=== PATIENT | female | born 1950 | race Caucasian/White ===

== ENCOUNTER → 2017-07-19 | Outpatient (CLI) | payer OTHER, MEDICARE ==
[~2017-07-19] VITALS: Ht 163.8 cm; Wt 102.3 kg
[~2017-07-19] MED LIST: ALEN70TA47 PO; ALPR0.5T8 PO; CALC-1106 PO; CLINDAMYCIN 900 MG/D5% WATER 50 ML IV SCH; IBUP-2353 PO; LORA10TA7 PO; METO-408 PO; PANT40TA25 PO; PHEN-615 PO; PRAV40TA3 PO; SERT100T12 PO; SUMA25TA9 PO; TRAM50TA4 PO; VARE0.5T PO; VITA1CAP50 PO
[2017-07-19 12:22] VITALS: BP 159/71
[2017-07-19 12:23] LABS: HEMATOCRIT 39.7 % (36-48); LYMPHOCYTES % (AUTO) 30.8 % (21.0-51.0); MEAN CORPUSCULAR HGB CONC 32.8 g/dL (32.0-36.0); MEAN CORPUSCULAR VOLUME 79.2 fL (79-99); MONOCYTES % (AUTO) 7.8 % (3.0-13.0); NEUTROPHILS % (AUTO) 56.4 % (40.0-77.0); NUCLEATED RED BLOOD CELLS 0.1 % (0.0-0.19); PLATELET COUNT (AUTO) 275 K/uL (130-400); RED BLOOD CELL COUNT(AUTO) 5.02 MIL/uL (4.00-5.50); RED CELL DISTRIBUTION WIDTH 15.8 % (11.0-15.5)
[2017-07-19 12:44] LABS: INR 0.89 (0.85-1.15); PARTIAL THROMBOPLASTIN TIME 23.6 SEC (26.3-35.5); PROTHROMBIN TIME 9.4 SEC (9.6-11.6)
[2017-07-19 12:46] LABS: ALBUMIN 3.5 g/dL (3.5-5.0); BILIRUBIN,TOTAL 0.3 mg/dL (0.2-1.0); CREATININE 0.8 mg/dL (0.5-1.5); POTASSIUM 5.2 mmol/L (3.5-5.1); TOTAL PROTEIN, SERUM 7.7 g/dL (6.0-8.3)
== END | disposition home or self-care (01) ==
LOC: CANPREIN → DAH 10:00 → EDSTATUS 12:00
PROVIDERS: ATTEND Neuromusculoskeletal Medicine & OMM
DX: Z01.818 Encounter for other preprocedural examination (principal); M54.5 Low back pain; R79.1 Abnormal coagulation profile
CPT/HCPCS: 36415; 80053; 85025; 85610; 85730; 93005

== ENCOUNTER → 2019-01-22 | Outpatient (CLI) | payer OTHER ==
[~2019-01-22] MED LIST changes: +ALEN70TA10 PO; -ALEN70TA47 PO; -CLINDAMYCIN 900 MG/D5% WATER 50 ML IV SCH; -IBUP-2353 PO; +IBUP-2784 PO; -SUMA25TA9 PO; -TRAM50TA4 PO; -VARE0.5T PO
== END | disposition home or self-care (01) ==
LOC: OIH 13:44
PROVIDERS: ATTEND Internal Medicine Cardiovascular Disease
DX: Z13.6 Encounter for screening for cardiovascular disorders (principal); K44.9 Diaphragmatic hernia without obstruction or gangrene
CPT/HCPCS: 75571

== ENCOUNTER 2019-03-18 07:22 | Day surgery (SDC) | payer OTHER, MEDICARE ==
[2019-03-16 10:00] VITALS: BP 141/72
[2019-03-16 10:05] LABS: BASOPHILS % (AUTO) 0.8 % (0.0-5.0); EOSINOPHILS % (AUTO) 4.6 % (0.0-8.0); HEMATOCRIT 42.3 % (36-48); LYMPHOCYTES % (AUTO) 27.7 % (21.0-51.0); MEAN CORPUSCULAR HEMOGLOBIN 27.3 pg (27.0-33.0); MEAN CORPUSCULAR HGB CONC 30.7 g/dL (32.0-36.0); MEAN CORPUSCULAR VOLUME 88.9 fL (79-99); MONOCYTES % (AUTO) 9.3 % (3.0-13.0); NEUTROPHILS % (AUTO) 57.3 % (40.0-77.0); PLATELET COUNT (AUTO) 222 K/uL (130-400); RED BLOOD CELL COUNT(AUTO) 4.76 MIL/uL (4.00-5.50); RED CELL DISTRIBUTION WIDTH 13.9 % (11.0-15.5); WHITE BLOOD COUNT (AUTO) 5.9 K/uL (4.8-10.8)
[2019-03-16 10:14] LABS: APPEARANCE,URINE Clear (CLEAR); BILIRUBIN,URINE Negative (NEGATIVE); COLOR,URINE Yellow (YELLOW); CREATININE 0.8 mg/dL (0.5-1.5); GLUCOSE, URINE (UA) Negative (NEGATIVE); KETONES,URINE Negative (NEGATIVE); LEUKOCYTE ESTERASE ,URINE Small (NEGATIVE); NITRATE,URINE Negative (NEGATIVE); OCCULT BLOOD,URINE Negative (NEGATIVE); POTASSIUM 4.8 mmol/L (3.5-5.1); PROTEIN,URINE Negative (NEGATIVE)
[2019-03-16 10:22] LABS: INR 0.92 (0.85-1.15); PARTIAL THROMBOPLASTIN TIME 24.3 SEC (26.3-35.5); PROTHROMBIN TIME 9.7 SEC (9.6-11.6)
[2019-03-16 10:43] LABS: RBC,URINE 0-1 /HPF (0-1)
[2019-03-16 10:44] LABS: BACTERIA,URINE Rare /HPF (None Seen); SQUAMOUS EPITHELIAL CELL,UR Rare /HPF (0-2)
--- NOTE | 2019-03-17 12:30 | NUR ---
ABNORMAL LABS abnormal urine reported to Tarah BARAHONA by Juan Tovar RN no new orders given Addendum: 03/17/19 at 1342 by MALIA DEVINE RN RN Amended: Links added.
[2019-03-18] VITALS (10 sets, daily range): BP systolic 117–144; BP diastolic 55–74
[~2019-03-18] VITALS: Ht 163.8 cm; Wt 105.0 kg
[~2019-03-18 07:22] MED LIST changes: -ALEN70TA10 PO; +ASPI-1005 PO; +ASPI-988 PO; -CALC-1106 PO; +IBUP-2077 PO; -IBUP-2784 PO; -LORA10TA7 PO; -PHEN-615 PO; +SUMA50TA PO; +TRAM100T34 PO; -VITA1CAP50 PO
[2019-03-18] MEDS ORDERED: SODIUM CHLORIDE 0.9% 1000ML 1,000 ML IV SCH ×2 (08:00→10:46)
[2019-03-18] MEDS ORDERED: HEPARIN SODIUM 1000UNIT/ML 10ML VIAL ONE ×2 (09:26→09:29)
[2019-03-18] MEDS ORDERED: SODIUM BICARB 50MEQ 50ML VIAL ONE (09:26)
[2019-03-18] MEDS ORDERED: MEPERIDINE-PF 25 MG/ML SYG ONE ×3 (09:27→10:24)
[2019-03-18] MEDS ORDERED: IOHEXOL 350 MG/ML 100ML INFUS..BTL IV ONE (09:27)
[2019-03-18] MEDS ORDERED: NITROGLYCERIN 5 MG/ML 10 ML VIAL IV ONE (09:27)
[2019-03-18] MEDS ORDERED: MIDAZOLAM HCL 1 MG/ML 2ML VIAL ONE ×3 (09:28→10:24)
[2019-03-18] MEDS ORDERED: LIDOCAINE HCL 2% 20ML ONE (09:28)
[2019-03-18] MEDS ORDERED: IOHEXOL-350 50ML VIAL IV ONE (09:29)
[2019-03-18] MEDS ORDERED: NICARDIPINE HCL 25 MG/10 ML ML IV ONE (09:57)
--- NOTE | 2019-03-18 11:10 | NUR ---
POST RECEIVED PT BACK FROM OPERATIONS CHIEF. S/P LHC VIA RIGHT RADIAL APPROACH , TR BAND IN PLACE WITH 12 ML OF AIR, SEE POST CATH ASSESSMENT. PT AWAKE AND ALERT. VS STABLE ON ARRIVAL. PLAN OF CARE DISCUSS WITH PATIENT, SHE VERBALIZED UNDERSTANDING.
--- NOTE | 2019-03-18 15:14 | NUR ---
REMOVED TRBAND WITH A TOTAL OF 12CC, PT TOLERATED WELL NO DISTRESS NOTED. NO HEMATOMA TO SITE
== END 2019-03-18 15:19 | disposition home or self-care (01) ==
LOC: DAH 07:22
PROVIDERS: ATTEND Internal Medicine Cardiovascular Disease
DX: I25.118 Atherosclerotic heart disease of native coronary artery with other forms of angina pectoris (principal); F41.9 Anxiety disorder, unspecified; G43.909 Migraine, unspecified, not intractable, without status migrainosus; F32.9 Major depressive disorder, single episode, unspecified; I10 Essential (primary) hypertension; E66.9 Obesity, unspecified; F17.210 Nicotine dependence, cigarettes, uncomplicated; E78.00 Pure hypercholesterolemia, unspecified; Z88.0 Allergy status to penicillin; Z88.5 Allergy status to narcotic agent; Z79.82 Long term (current) use of aspirin; Z79.899 Other long term (current) drug therapy; Z98.890 Other specified postprocedural states; Z90.49 Acquired absence of other specified parts of digestive tract; Z68.39 Body mass index [BMI] 39.0-39.9, adult; Z79.01 Long term (current) use of anticoagulants; Z82.49 Family history of ischemic heart disease and other diseases of the circulatory system
CPT/HCPCS: 36415; 71045; 80048; 81001; 85025; 85610; 85730; 93005; 93458; A4215; A4216; A4221; A4223 ×3; A4606; A4663; C1769; C1894 ×2; J1644 ×2; J2175 ×3; J2250 ×3; J3490 ×4; Q9965; Q9967 ×2; 99156; 99157

== ENCOUNTER → 2019-04-15 | Outpatient (CLI) | payer OTHER, MEDICARE | END | disposition home or self-care (01) | LOC: SLP 19:50 | PROVIDERS: ATTEND Internal Medicine Cardiovascular Disease | DX: G47.33 Obstructive sleep apnea (adult) (pediatric) (principal); E66.8 Other obesity; Z68.34 Body mass index [BMI] 34.0-34.9, adult; F32.9 Major depressive disorder, single episode, unspecified | CPT/HCPCS: 95811 ==

== ENCOUNTER 2020-02-03 20:53 | Emergency (ER) | payer OTHER, MEDICARE ==
[~2020-02-03 20:53] MED LIST changes: -PANT40TA25 PO; +PANT40TA54 PO
[2020-02-03] MEDS ORDERED: ACETAMINOPHEN 325 MG TAB ONE (21:15)
[2020-02-03] MEDS ORDERED: MAG HYDROX/AL HYDROX/SIMETH ES 30 ML SUSP UDCUP ONE (23:09)
== END 2020-02-03 23:31 | disposition home or self-care (01) ==
LOC: EDH 20:53
DX: S05.11XA Contusion of eyeball and orbital tissues, right eye, initial encounter (principal); S80.02XA Contusion of left knee, initial encounter; S80.01XA Contusion of right knee, initial encounter; S40.812A Abrasion of left upper arm, initial encounter; I10 Essential (primary) hypertension; E78.5 Hyperlipidemia, unspecified; G43.909 Migraine, unspecified, not intractable, without status migrainosus; Z88.0 Allergy status to penicillin; Z88.6 Allergy status to analgesic agent; W01.198A Fall on same level from slipping, tripping and stumbling with subsequent striking against other object, initial encounter; Y93.89 Activity, other specified; Y92.89 Other specified places as the place of occurrence of the external cause; Y99.8 Other external cause status
CPT/HCPCS: 70450; 70480; 73562

== ENCOUNTER 2020-04-27 13:05 | Emergency (ER) | payer OTHER, MEDICARE ==
[~2020-04-27 13:05] MED LIST changes: +SERT-440 PO; -SERT100T12 PO
[2020-04-27] MEDS ORDERED: MECLIZINE HCL 25 MG TABLET ONE (13:19)
[2020-04-27] MEDS ORDERED: ONDANSETRON HCL 4 MG/2 ML VIAL ONE (13:20)
[2020-04-27 13:32] LABS: BASOPHILS % (AUTO) 0.8 % (0.0-5.0); EOSINOPHILS % (AUTO) 5.3 % (0.0-8.0); HEMATOCRIT 37.3 % (36-48); LYMPHOCYTES % (AUTO) 30.7 % (21.0-51.0); MEAN CORPUSCULAR HEMOGLOBIN 26.1 pg (27.0-33.0); MEAN CORPUSCULAR HGB CONC 31.4 g/dL (32.0-36.0); MEAN CORPUSCULAR VOLUME 83.1 fL (79-99); MONOCYTES % (AUTO) 6.1 % (3.0-13.0); NEUTROPHILS % (AUTO) 56.8 % (40.0-77.0); PLATELET COUNT (AUTO) 268 K/uL (130-400); RED BLOOD CELL COUNT(AUTO) 4.49 MIL/uL (4.00-5.50); WHITE BLOOD COUNT (AUTO) 6.4 K/uL (4.8-10.8)
[2020-04-27 13:42] LABS: CREATININE 0.8 mg/dL (0.5-1.5); POTASSIUM 4.5 mmol/L (3.5-5.1)
[2020-04-27 13:52] LABS: ALBUMIN 3.1 g/dL (3.5-5.0); BILIRUBIN,TOTAL 0.3 mg/dL (0.2-1.0); TOTAL PROTEIN, SERUM 7.1 g/dL (6.0-8.3)
[2020-04-27] MEDS ORDERED: MAG HYDROX/AL HYDROX/SIMETH ES 30 ML SUSP UDCUP ONE (15:15)
== END 2020-04-27 16:24 | disposition home or self-care (01) ==
LOC: EDH 13:05
DX: H81.10 Benign paroxysmal vertigo, unspecified ear (principal); Z20.822 Contact with and (suspected) exposure to COVID-19; I10 Essential (primary) hypertension; E78.5 Hyperlipidemia, unspecified; G43.909 Migraine, unspecified, not intractable, without status migrainosus; M19.90 Unspecified osteoarthritis, unspecified site; Z88.0 Allergy status to penicillin; Z88.6 Allergy status to analgesic agent; Z72.0 Tobacco use
CPT/HCPCS: 36415; 70450; 71045; 80053; 84484; 85025; 87426; 93005; 96374; 99284; J2405

== ENCOUNTER 2020-11-16 15:15 | Emergency (ER) | payer OTHER, MEDICARE ==
[~2020-11-16] VITALS: Ht 162.6 cm; Wt 111.1 kg
[2020-11-16 15:49] VITALS: BP 110/48
[2020-11-16 16:51] LABS: BASOPHILS % (AUTO) 0.8 % (0.0-5.0); EOSINOPHILS % (AUTO) 6.2 % (0.0-8.0); LYMPHOCYTES % (AUTO) 26.7 % (21.0-51.0); MEAN CORPUSCULAR HEMOGLOBIN 26.5 pg (27.0-33.0); MEAN CORPUSCULAR HGB CONC 31.1 g/dL (32.0-36.0); MEAN CORPUSCULAR VOLUME 85.2 fL (79-99); MONOCYTES % (AUTO) 8.6 % (3.0-13.0); NEUTROPHILS % (AUTO) 57.3 % (40.0-77.0); PLATELET COUNT (AUTO) 259 K/uL (130-400); RED BLOOD CELL COUNT(AUTO) 4.46 MIL/uL (4.00-5.50); RED CELL DISTRIBUTION WIDTH 16.7 % (11.0-15.5); WHITE BLOOD COUNT (AUTO) 7.1 K/uL (4.8-10.8)
[2020-11-16 16:59] LABS: CREATININE 1.1 mg/dL (0.5-1.5); POTASSIUM 5.2 mmol/L (3.5-5.1)
[2020-11-16 17:00] LABS: INR 1.19 (0.85-1.15); PROTHROMBIN TIME 12.8 SEC (9.6-11.6)
[2020-11-16 17:03] LABS: ALBUMIN 3.1 g/dL (3.5-5.0); BILIRUBIN,TOTAL 0.2 mg/dL (0.2-1.0); TOTAL PROTEIN, SERUM 7.3 g/dL (6.0-8.3)
[2020-11-16 17:21] LABS: B-TYPE NATRIURETIC PEPTIDE 85 pg/mL (0-100)
[2020-11-16 18:58] VITALS: BP 159/80
== END 2020-11-16 19:06 | disposition home or self-care (01) ==
LOC: EDH 15:15
DX: S50.02XA Contusion of left elbow, initial encounter (principal); S80.01XA Contusion of right knee, initial encounter; E78.00 Pure hypercholesterolemia, unspecified; I10 Essential (primary) hypertension; M19.90 Unspecified osteoarthritis, unspecified site; Z88.0 Allergy status to penicillin; Z88.5 Allergy status to narcotic agent; Z86.718 Personal history of other venous thrombosis and embolism; Z79.899 Other long term (current) drug therapy; Z79.82 Long term (current) use of aspirin; Z79.1 Long term (current) use of non-steroidal anti-inflammatories (NSAID); Z98.84 Bariatric surgery status; Z79.01 Long term (current) use of anticoagulants; W01.0XXA Fall on same level from slipping, tripping and stumbling without subsequent striking against object, initial encounter; Y93.89 Activity, other specified; Y92.89 Other specified places as the place of occurrence of the external cause; Y99.8 Other external cause status
CPT/HCPCS: 36415; 71045; 73070; 73560; 80053; 83880; 85025; 85610; 93005

== ENCOUNTER 2020-12-30 13:28 | Emergency (ER) | payer OTHER, MEDICARE ==
[~2020-12-30] VITALS: Ht 162.6 cm; Wt 111.1 kg
[2020-12-30] MEDS ORDERED: ONDANSETRON 4MG INJ IVP SCH (14:00)
[2020-12-30 14:03] LABS: BASOPHILS % (AUTO) 0.7 % (0.0-5.0); EOSINOPHILS % (AUTO) 4.2 % (0.0-8.0); LYMPHOCYTES % (AUTO) 29.7 % (21.0-51.0); MEAN CORPUSCULAR HEMOGLOBIN 27.4 pg (27.0-33.0); MEAN CORPUSCULAR HGB CONC 31.3 g/dL (32.0-36.0); MEAN CORPUSCULAR VOLUME 87.4 fL (79-99); MONOCYTES % (AUTO) 7.4 % (3.0-13.0); NEUTROPHILS % (AUTO) 57.7 % (40.0-77.0); PLATELET COUNT (AUTO) 210 K/uL (130-400); RED BLOOD CELL COUNT(AUTO) 4.35 MIL/uL (4.00-5.50); RED CELL DISTRIBUTION WIDTH 15.6 % (11.0-15.5); WHITE BLOOD COUNT (AUTO) 6.9 K/uL (4.8-10.8)
[2020-12-30 14:17] LABS: POTASSIUM 4.8 mmol/L (3.5-5.1)
[2020-12-30 14:22] LABS: ALBUMIN 3.2 g/dL (3.5-5.0); BILIRUBIN,TOTAL 0.2 mg/dL (0.2-1.0); TOTAL PROTEIN, SERUM 7.2 g/dL (6.0-8.3)
[2020-12-30 14:23] LABS: B-TYPE NATRIURETIC PEPTIDE 42 pg/mL (0-100)
[2020-12-30] MEDS ORDERED: ACETAMINOPHEN 500 MG TABLET ONE (14:33)
[2020-12-30] MEDS ORDERED: IOHEXOL-350 75 ML VIAL IV ONE (14:42)
[2020-12-30] MEDS ORDERED: MORPHINE 2 MG SYG IVP SCH (15:00)
[2020-12-30] MEDS ORDERED: ACETAMINOPHEN 500 MG TABLET PO ONE (16:00)
[2020-12-30 16:46] VITALS: BP 128/63
== END 2020-12-30 17:15 | disposition home or self-care (01) ==
LOC: EDH 13:28
DX: R07.81 Pleurodynia (principal); E78.00 Pure hypercholesterolemia, unspecified; I10 Essential (primary) hypertension; J44.9 Chronic obstructive pulmonary disease, unspecified; F31.9 Bipolar disorder, unspecified; Z88.0 Allergy status to penicillin; Z88.5 Allergy status to narcotic agent; Z79.01 Long term (current) use of anticoagulants; Z79.1 Long term (current) use of non-steroidal anti-inflammatories (NSAID); Z79.82 Long term (current) use of aspirin; Z79.899 Other long term (current) drug therapy; Z86.718 Personal history of other venous thrombosis and embolism
CPT/HCPCS: 36415; 71275; 80053; 83880; 84484; 85025; 93005; 99284; Q9967

== ENCOUNTER → 2021-05-30 | Outpatient (CLI) | payer OTHER, MEDICARE ==
[~2021-05-30] MED LIST changes: +REGADENOSON 0.4 MG/5 ML PF SYG IVP SCH
== END | disposition home or self-care (01) ==
LOC: SHCH 07:44
PROVIDERS: ATTEND Internal Medicine Cardiovascular Disease
DX: R06.02 Shortness of breath (principal); R07.89 Other chest pain; R93.1 Abnormal findings on diagnostic imaging of heart and coronary circulation
CPT/HCPCS: 78452; 93017; 96374; A9500 ×2; J2785

== ENCOUNTER 2022-06-06 19:18 | Emergency (ER) | payer OTHER, MEDICARE ==
[~2022-06-06 19:18] MED LIST changes: -ASPI-988 PO; +ASPI1TAB7 PO; -REGADENOSON 0.4 MG/5 ML PF SYG IVP SCH
[2022-06-06] MEDS ORDERED: KETOROLAC 15MG/ML VIAL (15MG/ML) IV ONE (20:30)
[2022-06-06] MEDS ORDERED: ACET-66 PO (21:42)
[2022-06-06 22:28] VITALS: BP 123/75
== END 2022-06-06 22:29 | disposition home or self-care (01) ==
LOC: EDH 19:18
DX: S80.01XA Contusion of right knee, initial encounter (principal); E78.00 Pure hypercholesterolemia, unspecified; F32.A Depression, unspecified; I10 Essential (primary) hypertension; J44.9 Chronic obstructive pulmonary disease, unspecified; Z79.1 Long term (current) use of non-steroidal anti-inflammatories (NSAID); Z79.82 Long term (current) use of aspirin; Z79.899 Other long term (current) drug therapy; Z88.0 Allergy status to penicillin; Z88.5 Allergy status to narcotic agent; W01.0XXA Fall on same level from slipping, tripping and stumbling without subsequent striking against object, initial encounter; Y93.89 Activity, other specified; Y92.89 Other specified places as the place of occurrence of the external cause; Y99.8 Other external cause status
CPT/HCPCS: 99283; 96374; 73610; 73502; 73562; J1885

== ENCOUNTER 2023-03-12 12:56 | Emergency (ER) | payer OTHER, MEDICARE ==
[~2023-03-12] VITALS: Ht 160 cm; Wt 106.1 kg
[~2023-03-12 12:56] MED LIST changes: +ALBUTEROL IH; +ALEN70TA80 PO; -ALPR0.5T8 PO; -ASPI-1005 PO; -ASPI1TAB7 PO; +CYCL-309 PO; +DOCU100C33 PO; +GABA800T9 PO; +HYDR-4060 PO; -IBUP-2077 PO; +PHEN37.596 PO; -PRAV40TA3 PO; +RIVA15TA PO; +ROSU20TA73 PO; +SEMA2PEN SQ; -TRAM100T34 PO; +[UNRECOGNIZED DRUG - CODE] PO
[2023-03-12 13:17] VITALS: BP 139/76; PULSE 92; RESP 16
[2023-03-12] MEDS ORDERED: KETOROLAC 15MG/ML VIAL (15MG/ML) IM ONE (18:00)
== END 2023-03-12 18:35 | disposition home or self-care (01) ==
LOC: EDH 12:56
DX: S40.011A Contusion of right shoulder, initial encounter (principal); F32.A Depression, unspecified; E78.00 Pure hypercholesterolemia, unspecified; I10 Essential (primary) hypertension; W18.39XA Other fall on same level, initial encounter; Y93.89 Activity, other specified; Y92.89 Other specified places as the place of occurrence of the external cause; Y99.8 Other external cause status
CPT/HCPCS: 99283; 73030; 96372; J1885

== ENCOUNTER → 2023-05-06 | Outpatient (CLI) | payer OTHER, MEDICARE | END | disposition home or self-care (01) | LOC: RAH 13:17 | PROVIDERS: ATTEND Student in an Organized Health Care Education/Training Program | DX: M75.112 Incomplete rotator cuff tear or rupture of left shoulder, not specified as traumatic (principal); M19.012 Primary osteoarthritis, left shoulder; M75.42 Impingement syndrome of left shoulder | CPT/HCPCS: 73221 ==

== ENCOUNTER → 2023-12-02 | Outpatient (CLI) | payer OTHER, MEDICARE ==
[~2023-12-02] MED LIST changes: +CHOL200012 PO; -CYCL-309 PO; +GABA-1555 PO; -GABA800T9 PO; -HYDR-4060 PO; +LORA10TA7 PO; +LOSA-417 PO; +MELA1TAB15 PO; +MULT-1203 PO; +PANT40GR PO; -PANT40TA54 PO; -PHEN37.596 PO; -RIVA15TA PO; +RIVA1TAB PO; -ROSU20TA73 PO; -SERT-440 PO; +SERT200C PO; +SUMA10PO MC; -SUMA50TA PO; -[UNRECOGNIZED DRUG - CODE] PO
== END | disposition home or self-care (01) ==
LOC: RAH 13:19
PROVIDERS: ATTEND Orthopaedic Surgery
DX: T84.84XA Pain due to internal orthopedic prosthetic devices, implants and grafts, initial encounter (principal); X58.XXXA Exposure to other specified factors, initial encounter; Y93.89 Activity, other specified; Y92.89 Other specified places as the place of occurrence of the external cause; Y99.8 Other external cause status
CPT/HCPCS: 73200

== ENCOUNTER → 2024-05-01 | Outpatient (CLI) | payer OTHER, MEDICARE ==
[2024-05-01] MEDS: REGADENOSON 0.4 MG/5 ML PF SYG IVP ONE (11:46)
--- NOTE | 2024-05-06 10:47 | HMCSR ---
APPROVED REPORT Height: 5 ft 5in Weight: 176 lbs TEST INDICATIONS CAD The imaging protocol used to acquire images was Rest Tc-99m/stress Tc-99m 1 day Consent: The procedure was explained and understood by the patient. Informerd consent was witnessed Geraldo DE LEON RN First, low dose rest was performed then high dose stress. RESTING DATA: The resting ekg shows: NSR Rest SPECT myocardial perfusion imaging was performed in supine position 81 minutes following the int ravenous injection of 11.6 mCi of Tc-99 Sestamibi. Time of rest injection: 08:48: Date: 05/01/2024 Time of rest imagin:09: Date: 05/01/2024 PHARMACOLOGIC STRESS: Pharmacologic stress test was performed by injecting regadenoson 0.4 mg IV push followed by the intra venous injection of 31.9 mCi of Tc-99 Sestamibi. Time of stress injection: 10:44: Date: 05/01/2024 Time of stress imagin:13: Date: 05/01/2024 Heart Rate at time of stress injection: 68 bpm. Gated Stress SPECT was performed 89 minutes after stress injection. The images were gated to evaluate regional wall motion and calculate left ventricular ejection fracti on. STRESS DETAILS Reason for Termination: Infusion complete Stress Symptoms: Dyspnea Max HR Achieved: 78 bpm % of APMHR Achieved: 54 Max Blood Pressure: 137/73 mmHg Stress ECG: NSR LEFT VENTRICLE Size: The left ventricular size is normal. Systolic Function:The left ventricular systolic function is normal. Wall Motion: No regional wall motion abnormalities noted. The left ventricular ejection fraction was calculated to be 61%.TID = . LV PERFUSION Fixed inferior wall defect. No reversible defects noted. Conclusion The left ventricular size is normal. The left ventricular systolic function is normal. No regional wall motion abnormalities noted. Fixed inferior wall defect. No reversible defects noted. The left ventricular ejection fraction was calculated to be 61%.
== END | disposition home or self-care (01) ==
LOC: SHCH 08:21
PROVIDERS: ATTEND Internal Medicine Cardiovascular Disease
DX: I25.10 Atherosclerotic heart disease of native coronary artery without angina pectoris (principal); R06.00 Dyspnea, unspecified
CPT/HCPCS: 78452; 93017; J2785; A9500 ×2

== ENCOUNTER → 2024-05-07 | Outpatient (CLI) | payer OTHER, MEDICARE ==
--- NOTE | 2024-05-11 13:24 | HMCSR ---
APPROVED REPORT EXAM: Two-dimensional and M-mode echocardiogram with Doppler and color Doppler. INDICATION ICD: Shortness of breath R06.02 2D Dimensions IVSd0.7 (0.7-1.1cm)LVEF(%)60.1 (>50%)LVED Vol(simp.)91.6 mL LVDd5.2 (3.8-5.6cm)FS(%)32 %LVES Vol(simp.)41.4 mL PWd0.7 (0.7-1.1cm)LA (2D)4.8 (1.6-4.0cm)LVEF(%, simp.)55 % IVSs1.0 cmAo Root(2D)3.0 (2.0-3.7cm)LA ESV INDEX (BP)42.86 mL/m2 LVDs3.5 (2.5-4.0cm)LVOT diam2.4 (1.8-2.4cm) PWs1.3 cmIVC diam0.9 cm M-Mode Dimensions EPSS1.4 cm LA (MM)4.9 (1.6-4.0cm) Ao Root(MM)3.5 (2.0-3.7cm) Aortic Valve AoV Vmax1.5 m/[place] GR8.8 mmHgLVOT Vmax1.1 m/s AoV VTI0.3 mAo Mean GR4.7 mmHgLVOT VTI0.24 m HARSHAL (VMAX)3.3 cm2Al P1/2T440 msAVA (VTI) 3.3 cm2 Mitral Valve MV E Hwrj382.0 cm/sDECEL Boyj938 msMV Peak GR7 mmHg MV A Ngub284.7 cm/sP 1/2 T69 msMV Mean GR2 mmHg E/A ratio0.9MVA (PHT)3.2 cm2 TDI E/E' Ibtoob53.5E/E' Jdqzlpe20.5 Medial E' Peak V6.00 cm/sLateral E' Peak V6.00 cm/s Pulmonary Valve PV Vmax1.2 m/s Tricuspid Valve TR Vmax2.3 m/sRAP (EST) 3 juBwCECD98.3 mmHg TR Peak GR21.3 mmHg Left Ventricle Left ventricular cavity size is normal. There is normal left ventricular wall thickness. LVEF is 55%. No left ventricle thrombus noted on this study. Stage I diastolic dysfunction. Right Ventricle The right ventricle is normal size. The right ventricular systolic function is normal. Atria The left atrium is moderately dilated. The right atrium size is normal. Aortic Valve The aortic valve is normal in structure. Mild aortic regurgitation. There is no aortic valvular steno sis. Mitral Valve Mitral valve leaflets open well. Mild mitral annular calcification present. Anterior mitral valve corbin flet small mobile echogenicity mass seen vs artifact. There is no mitral valve regurgitation noted. T here is no mitral valve stenosis. Tricuspid Valve The tricuspid valve is normal in structure. There is trace of tricuspid valve regurgitation noted. Pulmonic Valve There is trace of pulmonic valvular regurgitation. Great Vessels The aortic root is normal in size. The IVC is normal in size and collapses >50% with inspiration. Pericardium No pericardial effusion. Other Information Quality : Adequate Conclusion Left ventricular cavity size is normal. LVEF is 55%. Stage I diastolic dysfunction. The right ventricle is normal size. The left atrium is moderately dilated. The aortic valve is normal in structure. Mild aortic regurgitation. There is no aortic valvular stenosis. Mitral valve leaflets open well. Mild mitral annular calcification present. Anterior mitral valve leaflet small mobile echogenicity mass seen vs artifact. There is no mitral valve regurgitation noted. There is no mitral valve stenosis. There is trace of tricuspid valve regurgitation noted. There is trace of pulmonic valvular regurgitation. The aortic root is normal in size. The IVC is normal in size and collapses >50% with inspiration. No pericardial effusion.
== END | disposition home or self-care (01) ==
LOC: RAH 13:22
PROVIDERS: ATTEND Internal Medicine Cardiovascular Disease
DX: I08.0 Rheumatic disorders of both mitral and aortic valves (principal)
CPT/HCPCS: 93306

== ENCOUNTER 2024-06-23 06:52 | Day surgery (SDC) | payer OTHER, MEDICARE ==
[2024-06-17 12:20] VITALS: BP 140/67; PULSE 65; RESP 14; TEMP 97.2
[2024-06-17 12:34] LABS: ADD UA MICROSCOPIC YES; APPEARANCE,URINE CLEAR (CLEAR); BILIRUBIN,URINE NEGATIVE (NEGATIVE); COLOR,URINE YELLOW (YELLOW); GLUCOSE, URINE (UA) NEGATIVE (NEGATIVE); KETONES,URINE NEGATIVE (NEGATIVE); LEUKOCYTE ESTERASE ,URINE 250 Leu/uL (NEGATIVE); NITRATE,URINE NEGATIVE (NEGATIVE); OCCULT BLOOD,URINE NEGATIVE (NEGATIVE); PH,URINE 5.5 (5.0-8.0); PROTEIN,URINE 10 mg/dL (NEGATIVE)
[2024-06-17 12:38] LABS: BACTERIA,URINE RARE /HPF (None Seen); MUCUS,URINE RARE LPF (None Seen); OTHER CASTS, URINE 1 /LPF (None Seen); SQUAMOUS EPITHELIAL CELL,UR FEW /HPF (0-2)
--- NOTE | 2024-06-22 15:45 | NUR ---
RE: LABS REPORTED URINE CX TO RESULTS TO DR BELTRÁN, NO NEW ORDERS RECEIVED.
[2024-06-23] VITALS (17 sets, daily range): BP systolic 130–167; BP diastolic 58–77; PULSE 62–74; RESP 15–18; TEMP 96.6–97.3
[~2024-06-23] VITALS: Ht 165.1 cm; Wt 78.3 kg
[~2024-06-23 06:52] MED LIST changes: -ALBUTEROL IH; +ASPI-1190 PO; -CHOL200012 PO; -DOCU100C33 PO; +GABA-1405 PO; -GABA-1555 PO; -LOSA-417 PO; -MELA1TAB15 PO; -MULT-1203 PO; +RIVA15TA PO; -RIVA1TAB PO; -SUMA10PO MC; +TRAM100T34 PO
[2024-06-23] MEDS ORDERED: EPINEPHrine PF 1MG (1:1,000) 1 MG/ML AMP ONE (07:25)
[2024-06-23] MEDS ORDERED: MIDAZOLAM HCL 1 MG/ML 2ML VIAL ONE (07:39)
[2024-06-23] MEDS ORDERED: rocuRONium bROMide 10MG/1ML 5ML VL ONE (07:39)
[2024-06-23] MEDS ORDERED: LIDOCAINE PF 100MG/5ML (2%) SYRINGE 5ML ONE (07:39)
[2024-06-23] MEDS ORDERED: proPOFol 10 MG/ML 20ML VIAL IV ONE (07:39)
[2024-06-23] MEDS ORDERED: FENTanyl CITRate PF 50 MCG/1 ML 2ML VIAL ONE (07:39)
[2024-06-23] MEDS: ceFAZolin SODIUM 2 GM VIAL ONE (07:51)
[2024-06-23] MEDS: LACTATED RINGERS 1000ML 1,000 ML IV ONE (07:51)
[2024-06-23] MEDS ORDERED: dexaMETHasone SOD PHOSPHATE 10MG/ML 1ML VIAL ONE (12:41)
[2024-06-23] MEDS ORDERED: ondanSETRON 4MG INJ ONE (12:51)
[2024-06-23] MEDS ORDERED: NEOSTIGMINE METHYLSULFATE 1MG/ML IV ONE (13:03)
[2024-06-23] MEDS ORDERED: GLYCOPYRROLATE 0.2 MG/ML 5 ML VIAL ONE (13:03)
[2024-06-23] MEDS ORDERED: acetaMINOPHEN 100 ML ONE (13:54)
--- NOTE | 2024-06-23 14:16 | OP ---
Operative Note: DATE OF PROCEDURE: 06/23/24 SURGEON: SOHAIL BELTRÁN MD ADAPTED PHYSICAL EDUCATION SPECIALIST: [Miguel Singh [facility]] ANESTHESIA: [General anesthesia plus local] PREOPERATIVE DIAGNOSIS: [Right shoulder posterior subcutaneous lipoma. Chronic pain right shoulder, history of reverse total shoulder arthroplasty] POSTOPERATIVE DIAGNOSIS: [Same] PROCEDURE: [Right posterior shoulder excision of subcutaneous lipoma. Attempted arthrocentesis of the right shoulder. Arthroscopic debridement subacromial area. Exam under anesthesia] ESTIMATED BLOOD LOSS: [Less than 50 mL] INDICATIONS: [The patient is a 74-year-old female with a long history of right shoulder pain after a reverse total shoulder arthroplasty that was performed several years ago. The patient has significant restricted range of motion and because of the fact that she has been injected by another doctor in the intra- articular area we suspected the presence of infection. The inflammatory markers results were borderline but within the normal and we tried to do an aspiration in the office unsuccessfully. The patient at the same time has the history of a lipoma in the posterior aspect of her scapula area which is subcutaneous and she wanted to have it removed because bothers her to lay down on it. The patient is brought to the operating room for excision of the of the lipoma as well as an aspiration of the shoulder and if not possible due small arthroscopy to evaluate the tissue within the shoulder area. The procedure was understood, risks, benefits and possible complications and the patient agreed signed the consent form.] DESCRIPTION OF PROCEDURE: [After adequate general anesthesia was achieved the patient was placed in the left lateral decubitus and the right upper extremity and the posterior back were prepped and draped in the usual manner. Attention was given 1st to the area of the lipoma where after capture in the lipoma with one hand we were able to make an incision longitudinally in the same area through the skin followed by dissection subcutaneous tissue and then immediately we were able to break through the capsule of the lipoma which was practically squeeze out of the capsule. The mass measured 9 x 6-1/2 cm and had benign characteristics. It was sent to pathology for further studies. The wound was packed and then we proceeded to address the shoulder and with the use of an 18 gauge spinal needle we proceeded to penetrate into the shoulder area but we were unsuccessful in obtain any fluid. For this reason we made an incision just posterior to the acromion and after trocar was inserted we proceeded to place the arthroscope we noticed significant amount of bursal tissue and then through a lateral portal throat incision we proceeded to penetrate with the shaver but we were not able to locate it with the camera. The arthroscope was inserted to the lateral portal then and the shaver from the posterior and we were able with the lateral portal visualize the the components which seemed to be in adequate position and alignment the shaver was then inserted and we were able to shave some of the bursal tissue which was of normal course this is with no signs of in flammation. After we cleaned up the area we were then able to evaluate the range of motion of the patient which in the clinic was always extremely restricted and painful but in this occasion the range of motion was noted to be completely full and without restrictions. We then proceeded to close the wounds with a approximation of the of the arthroscopic incisions with 2-0 Monocryl inverted stitches and placement of Dermabond and the posterior shoulder area we were able to reapproximate the subcutaneous tissue of the two layers where the lipoma was present to close the space and then we and we used 2-0 Vicryl simple stitches then we proceeded to use the same 2-0 Vicryl stitches to do a subcutaneous inverted stitch closure followed by 2-0 Monocryl to close the skin subcuticularly. The since were applied to the incisions after Dermabond was applied to the posterior longitudinal incision and then the patient was put in the supine position in her operating table and taken to recovery room for follow-up by anesthesia. There were no complications during the procedure.] SOHAIL BELTRÁN MD Jun 23, 2024 14:16
[2024-06-23] MEDS ORDERED: CEPH500B PO (14:25)
--- NOTE | 2024-06-23 16:50 | NUR ---
Full and complete discharge instructions given to Patient and Family both verbally and in writing. Explained Surgical procedure precautions and follow up. Voided in bathroom large amount. Tolerated po fluids without issue. Neurovascularly intact. All dressings clean and dry. All questions answered. PIV removed with catheter tip intact. Home with Family Provider W/C to POV.
== END 2024-06-23 16:45 | disposition home or self-care (01) ==
LOC: DAH 06:52
PROVIDERS: ATTEND Orthopaedic Surgery
DX: D17.21 Benign lipomatous neoplasm of skin and subcutaneous tissue of right arm (principal); M25.511 Pain in right shoulder; M62.81 Muscle weakness (generalized); G89.29 Other chronic pain; J43.9 Emphysema, unspecified; K21.9 Gastro-esophageal reflux disease without esophagitis; E78.5 Hyperlipidemia, unspecified; I10 Essential (primary) hypertension; I25.10 Atherosclerotic heart disease of native coronary artery without angina pectoris; F41.9 Anxiety disorder, unspecified; F32.A Depression, unspecified; E66.9 Obesity, unspecified; G43.909 Migraine, unspecified, not intractable, without status migrainosus; M79.9 Soft tissue disorder, unspecified; Z96.611 Presence of right artificial shoulder joint; Z98.890 Other specified postprocedural states; Z79.01 Long term (current) use of anticoagulants; Z79.899 Other long term (current) drug therapy
CPT/HCPCS: 87086; 81001; 29822; 64415; 23071; 82948 ×2; 88304; A4663; J7120 ×2; J3010; J1100; J3490 ×2; J2003; J0171; J2250; J2704; J2405; J2710; J0690; A6204; A4930 ×2; A5120; A4215; A4223; A4222; A4221; A4600

== ENCOUNTER 2024-12-07 13:46 | Emergency (ER) | payer OTHER, MEDICARE ==
[~2024-12-07] VITALS: Ht 160 cm; Wt 72.6 kg
[~2024-12-07 13:46] MED LIST changes: +CEPH500B PO
[2024-12-07 13:47] VITALS: BP 148/58; PULSE 70; RESP 16; TEMP 98
--- NOTE | 2024-12-07 16:09 | HMCIMG ---
EXAM: CT Head Without IV contrast. CLINICAL HISTORY: injury TECHNIQUE: Axial computed tomography images of the head/brain without intravenous contrast. COMPARISON: 04/27/20 FINDINGS: BRAIN: Marked cerebral atrophy, more pronounced within the bilateral frontal lobes. No evidence of acute hemorrhage. No mass lesion. No CT evidence for acute territorial infarct. No midline shift or extra-axial collections. VENTRICLES: No hydrocephalus. ORBITS: The orbits are unremarkable. SINUSES AND MASTOIDS: The paranasal sinuses and mastoid air cells are clear. BONES: No fracture. SOFT TISSUES: Unremarkable. IMPRESSION: 1. No acute intracranial findings. /[place]
--- NOTE | 2024-12-07 16:11 | HMCIMG ---
EXAM: CT Pelvis without Intravenous Contrast. CLINICAL HISTORY: injury TECHNIQUE: Axial computed tomography images of the pelvis without without intravenous contrast. CONTRAST: None. COMPARISON: None provided. FINDINGS: HIP JOINTS: No dislocation. The joint spaces are normal. BONES: Posterior fixation of the L5 and S1 vertebrae. No acute fracture or focal osseous lesion. No suspicious focal osseous lesions. What appears to represent an old chronic healed fracture deformity with callus involving the right inferior pubic ramus. SOFT TISSUES: The pelvic viscera are unremarkable. No fluid collection, hematoma or mass. Atherosclerotic vascular calcifications. No radiopaque foreign body or soft tissue gas. IMPRESSION: 1. No acute pelvic findings. /[place]
--- NOTE | 2024-12-07 17:06 | ERN ---
ED Note History of Present Illness Stated Complaint: RT HIP PAIN, FALL Chief Complaint: Mechanical Fall Time Seen by MD: 13:56 Dictation: 74-year-old female mechanical fall onto right hip area causing pain worse with ambulation. No other injuries no chest pain no shortness a breath no abdominal pain. Allergies: Coded Allergies: Penicillins (Verified Allergy, Unknown, 02/12/19) codeine (Verified Allergy, Unknown, 11/19/22) REPORTS ALLERGY BEING UPSET STOMACH WITH CODEINE Home Meds Active Scripts Cephalexin Monohydrate (Keflex) 500 Mg Cap, 500 MG PO TID for UTI for 7 Days, #21 CAP 0 Refills Prov:SOHAIL BELTRÁN MD 06/23/24 Reported Medications Tramadol HCl (Tramadol HCl ER) 100 Mg Tab.er.24h, 100 MG PO DAILY PRN for PAIN, TAB 06/17/24 Rivaroxaban (Xarelto) 15 Mg Tablet, 15 MG PO HS, TAB 06/17/24 Gabapentin (Gabapentin) 600 Mg Tablet, 600 MG PO HS, TAB 06/17/24 Aspirin/Acetaminophen/Caffeine (Excedrin Extra Strength Caplet) 250 Mg-250 Mg-65 Mg Tablet, 1 EACH PO AD PRN for PAIN, TAB 06/17/24 Loratadine (Loratadine) 10 Mg Tablet, 10 MG PO DAILY PRN for ALLERGIES, TAB 06/24/23 Metoprolol Succinate (Metoprolol Succinate) 25 Mg Tab.er.24h, 25 MG PO DAILY, TAB 06/24/23 Sertraline HCl (Sertraline HCl) 200 Mg Capsule, 200 MG PO DAILY, CAP 06/24/23 Pantoprazole Sodium (Pantoprazole Sodium) 40 Mg Granpkt.dr, 40 MG PO DAILY, PACK 06/24/23 Alendronate Sodium (Alendronate Sodium) 70 Mg Tablet, 70 MG PO MONDAYS, TAB 11/16/22 Semaglutide (Ozempic) 2 Mg/0.75 Ml (8 Mg/3 Ml) Pen.injctr, 0.5 MG SQ WEEKLY saturday11/16/22 Past Medical History Past Medical History: High Cholesterol, Hypertension Additional Past Medical Hx: ABDOMINAL HERNIA Surgical History: Cholecystectomy Surgical History Other: SPINAL FUSION Family History: Negative Social History: Negative History: Not Applicable Review of System Dictation Constitutional: Negative for fever,chills, and weight loss Eyes: Negative for injury, pain,redness, and discharge ENT: Negative for injury,pain or swelling Cardiovascular: Negative for chest pain, palpitations, and edema Respiratory: Negative for shortness of breath, cough, and wheezing, Abdomen/GI: Negative for abdominal pain, nausea, vomiting, diarrhea, and constipation Back: Negative for injury and pain : Negative for injury, bleeding and discharge MS/Extremity: Per H Skin: Negative for rash, and discoloration Neuro: Negative for headache, weakness, numbness, tingling, and seizure Psych: Negative for suicide ideation, homicidal ideation, and hallucinations Initial Vital Sign VS Vital Signs Date Time Temp Pulse Resp B/P (MAP) Pulse Ox O2 Delivery O2 Flow Rate FiO2 12/07/24 13:47 98.1 70 16 148/58 96 Room Air 0 Physical Exam Dictation General: awake, alert, NAD Head/Face: Normocephalic, atraumatic Eyes: PERRL, EOMI, vision at baseline ENT: oral cavity clear, TMs clear, no signs of infection Neck: Trachea midline, supple, no nuchal rigidity Cardiovascular: RRR, normal S1/S2, No MRGs, no JVD Respiratory: CTAB, no respiratory distress, No rales or wheezes Abdomen: Soft, non-tender, non-distended, normal bowel sounds, no guarding or rebound. Skin: Warm, dry, normal turgor, no rash MS/Extremity: Pulses equal, no cyanosis, neurovascular intact, FROM, right hip tenderness to palpation ecchymosis noted no deformity Neuro: COAx4, GCS 15, strength 5/5, CN 2-12 intact, normal cerebellar exam, normal gait, Psych: Normal behavior, mood, and affect normal ED Course ED Course Orders Procedure Category Date Status Time Hip Unilat 2-3vw Right RAD 12/07/24 Logged 14:55 Ct Pelvis W/O Contrast CT 12/07/24 Resulted 14:55 Ct Head/Brain W/O CT 12/07/24 Resulted Contrast 14:55 Vital Signs Date Time Temp Pulse Resp B/P (MAP) Pulse Ox O2 Delivery O2 Flow Rate FiO2 12/07/24 13:47 98.1 70 16 148/58 96 Room Air 0 Medical Decision Making MDM MDM: Differential diagnosis: Rationale: Tests considered and ordered secondary to shared decision making include: Previous outside records reviewed: Old ER visits. Risk of complication and/or morbidity or mortality of patient management: None Medications-Per medication reconciliation Need for hospitalization: Patient does not meet criteria for hospitalization. Need for emergency major/minor surgery: No There are no social concerns with this patient. Prescription drug management Prescriptions will include symptomatic care Patient's prior external medical records from other ER visits were reviewed by me as indicated. Prior testing and results from previous visits were reviewed. Prior tests were taken into account with medical decision making and resource utilization, independent historian/historians were used to obtain complete medical history. I independently interpreted the test that were performed, results were reviewed by me and considered findings on radiology if ordered. Medical management and examination interpretation discussions were had by me with other qualified healthcare professionals as indicated for the patient's care. 74-year-old female with with fall right hip contusion CT scan negative stable for discharge no fracture DX & DISP Disposition: Discharge Departure Impression: Primary Impression: Fall Additional Impression: Contusion of right hip Condition: Stable Referrals: MAEVE PALACIOS (PCP) VINOD SINGH MD Dec 07, 2024 17:06
== END 2024-12-07 17:23 | disposition home or self-care (01) ==
LOC: EDH 13:46
DX: S70.01XA Contusion of right hip, initial encounter (principal); E78.00 Pure hypercholesterolemia, unspecified; I10 Essential (primary) hypertension; Z79.899 Other long term (current) drug therapy; Z88.0 Allergy status to penicillin; Z88.5 Allergy status to narcotic agent; Z90.49 Acquired absence of other specified parts of digestive tract; Z98.1 Arthrodesis status; W18.39XA Other fall on same level, initial encounter; Y93.89 Activity, other specified; Y92.89 Other specified places as the place of occurrence of the external cause; Y99.8 Other external cause status
CPT/HCPCS: 70450; 72192; 99284